=== PATIENT | female | born 1995 | race Two or more races ===

== ENCOUNTER 2022-12-18 21:21 | Emergency (ER) | payer MEDICAID ==
[~2022-12-18] VITALS: Ht 147.3 cm; Wt 90.7 kg
[2022-12-18 22:04] VITALS: BP 123/78
--- NOTE | 2022-12-18 22:04 | NUR ---
BIBS. GEN BODY HIVES AND ITCHING X 1 WEEKS. BENADRYL NOT WORKING
[2022-12-18] MEDS ORDERED: HYDR453.4 TP (22:37)
== END 2022-12-18 22:51 | disposition home or self-care (01) ==
LOC: ER 21:23
DX: R21 Rash and other nonspecific skin eruption (principal)